=== PATIENT | female | born 1940 | race Hispanic/Latino ===

== ENCOUNTER → 2017-06-20 | Outpatient (CLI) | payer OTHER | LOC: RAH 09:50 | PROVIDERS: ATTEND Podiatrist | DX: M19.072 Primary osteoarthritis, left ankle and foot (principal) | CPT/HCPCS: 73630 ==

== ENCOUNTER → 2018-04-05 | Outpatient (CLI) | payer OTHER | END | disposition home or self-care (01) | LOC: SHCH 14:56 | PROVIDERS: ATTEND Internal Medicine Cardiovascular Disease | DX: R06.02 Shortness of breath (principal) | CPT/HCPCS: 93306 ==

== ENCOUNTER → 2018-09-04 | Outpatient (CLI) | payer OTHER ==
[~2018-09-04] VITALS: Ht 149.9 cm; Wt 68.9 kg
[~2018-09-04] MED LIST: REGADENOSON 0.4 MG/5 ML PF SYG IVP SCH
== END | disposition home or self-care (01) ==
LOC: SHCH 08:10
PROVIDERS: ATTEND Internal Medicine Cardiovascular Disease
DX: R07.1 Chest pain on breathing (principal); R06.00 Dyspnea, unspecified
CPT/HCPCS: 78452; 93017; 96374; A9500 ×2; J2785

== ENCOUNTER 2022-10-06 21:42 | Emergency (ER) | payer OTHER ==
[~2022-10-06] VITALS: Ht 149.9 cm; Wt 62.6 kg
[2022-10-06] MEDS ORDERED: LABETALOL 20MG VIAL IV ONE (22:30)
[2022-10-06 22:53] LABS: BASOPHILS % (AUTO) 0.6 % (0.0-5.0); HEMATOCRIT 26.2 % (36-48); LYMPHOCYTES % (AUTO) 23.3 % (21.0-51.0); MEAN CORPUSCULAR HGB CONC 33.6 g/dL (32.0-36.0); MEAN CORPUSCULAR VOLUME 92.3 fL (79-99); MONOCYTES % (AUTO) 7.2 % (3.0-13.0); NEUTROPHILS % (AUTO) 60.4 % (40.0-77.0); PLATELET COUNT (AUTO) 194 K/uL (130-400); RED BLOOD CELL COUNT(AUTO) 2.84 MIL/uL (4.00-5.50); WHITE BLOOD COUNT (AUTO) 8.9 K/uL (4.8-10.8)
[2022-10-06 23:13] LABS: CREATININE 3.9 mg/dL (0.5-1.5); POTASSIUM 3.7 mmol/L (3.5-5.1)
[2022-10-06 23:17] LABS: ALBUMIN 3.3 g/dL (3.5-5.0); TOTAL PROTEIN, SERUM 6.7 g/dL (6.0-8.3)
[2022-10-07] MEDS ORDERED: HYDRALAZINE 20MG/ML VIAL IV ONE (00:30)
[2022-10-07 01:27] VITALS: BP 133/72
== END 2022-10-07 01:32 | disposition home or self-care (01) ==
LOC: EDH 21:42
DX: I12.0 Hypertensive chronic kidney disease with stage 5 chronic kidney disease or end stage renal disease (principal); E03.9 Hypothyroidism, unspecified; E11.22 Type 2 diabetes mellitus with diabetic chronic kidney disease; N18.6 End stage renal disease; E78.00 Pure hypercholesterolemia, unspecified; Z88.6 Allergy status to analgesic agent; Z99.2 Dependence on renal dialysis
CPT/HCPCS: 99283; 96374; 80053; 85025; 36415; 96375; J3490; J0360

== ENCOUNTER 2022-10-13 05:41 | Emergency (ER) | payer OTHER ==
[~2022-10-13] VITALS: Ht 149.9 cm; Wt 68.0 kg
[2022-10-13 06:23] LABS: APPEARANCE,URINE CLOUDY (CLEAR); BILIRUBIN,URINE NEGATIVE (NEGATIVE); COLOR,URINE YELLOW (YELLOW); GLUCOSE, URINE (UA) 70 mg/dL (NEGATIVE); KETONES,URINE NEGATIVE (NEGATIVE); LEUKOCYTE ESTERASE ,URINE 75 Leu/uL (NEGATIVE); NITRATE,URINE NEGATIVE (NEGATIVE); OCCULT BLOOD,URINE NEGATIVE (NEGATIVE); PH,URINE 6.5 (5.0-8.0); PROTEIN,URINE 300 mg/dL (NEGATIVE); UROBILINOGEN,URINE 0.2 mg/dL (0.2-1.0)
[2022-10-13 07:21] VITALS: BP 127/58
[2022-10-13 07:30] LABS: BACTERIA,URINE RARE /HPF (None Seen); MUCUS,URINE RARE LPF (None Seen); SQUAMOUS EPITHELIAL CELL,UR MOD /HPF (0-2); TRANSITIONAL EPI CELLS,URINE RARE /HPF (None Seen)
== END 2022-10-13 07:22 | disposition home or self-care (01) ==
LOC: EDH 05:41
DX: E11.22 Type 2 diabetes mellitus with diabetic chronic kidney disease (principal); I12.9 Hypertensive chronic kidney disease with stage 1 through stage 4 chronic kidney disease, or unspecified chronic kidney disease; N18.4 Chronic kidney disease, stage 4 (severe); E78.00 Pure hypercholesterolemia, unspecified; Z99.2 Dependence on renal dialysis; Z88.6 Allergy status to analgesic agent
CPT/HCPCS: 51701; 81001

== ENCOUNTER 2022-10-15 17:45 | Emergency (ER) | payer OTHER, MEDICARE ==
[~2022-10-15] VITALS: Ht 147.3 cm; Wt 68.0 kg
[2022-10-15 18:44] LABS: BASOPHILS % (AUTO) 0.3 % (0.0-5.0); EOSINOPHILS % (AUTO) 1.9 % (0.0-8.0); HEMATOCRIT 24.5 % (36-48); LYMPHOCYTES % (AUTO) 17.7 % (21.0-51.0); MEAN CORPUSCULAR HEMOGLOBIN 30.9 pg (27.0-33.0); MEAN CORPUSCULAR HGB CONC 35.1 g/dL (32.0-36.0); MEAN CORPUSCULAR VOLUME 88.1 fL (79-99); MONOCYTES % (AUTO) 7.3 % (3.0-13.0); NEUTROPHILS % (AUTO) 72.4 % (40.0-77.0); PLATELET COUNT (AUTO) 219 K/uL (130-400); RED BLOOD CELL COUNT(AUTO) 2.78 MIL/uL (4.00-5.50); RED CELL DISTRIBUTION WIDTH 15.2 % (11.0-15.5); WHITE BLOOD COUNT (AUTO) 9.6 K/uL (4.8-10.8)
[2022-10-15 19:01] LABS: ALBUMIN 3.3 g/dL (3.5-5.0); CREATININE 3.6 mg/dL (0.5-1.5); POTASSIUM 3.5 mmol/L (3.5-5.1)
[2022-10-15 19:05] LABS: TOTAL PROTEIN, SERUM 6.4 g/dL (6.0-8.3)
[2022-10-15 19:27] LABS: B-TYPE NATRIURETIC PEPTIDE 648 pg/mL (0-100)
[2022-10-15 21:32] LABS: APPEARANCE,URINE CLEAR (CLEAR); BILIRUBIN,URINE NEGATIVE (NEGATIVE); COLOR,URINE LIGHT-YELLOW (YELLOW); GLUCOSE, URINE (UA) 50 mg/dL (NEGATIVE); KETONES,URINE NEGATIVE (NEGATIVE); LEUKOCYTE ESTERASE ,URINE NEGATIVE Leu/uL (NEGATIVE); NITRATE,URINE NEGATIVE (NEGATIVE); OCCULT BLOOD,URINE NEGATIVE (NEGATIVE); PH,URINE 6.5 (5.0-8.0); PROTEIN,URINE 300 mg/dL (NEGATIVE); UROBILINOGEN,URINE 0.2 mg/dL (0.2-1.0)
[2022-10-15 21:53] LABS: BACTERIA,URINE RARE /HPF (None Seen); WBC,URINE 0-1 /HPF (0-1)
[2022-10-15 23:52] VITALS: BP 156/57
[2022-10-22] MEDS ORDERED: SERT-439 PO (15:08)
[2022-10-22] MEDS ORDERED: HYDR25TA PO (15:08)
[2022-10-22] MEDS ORDERED: AMLO-258 PO (15:08)
[2022-10-22] MEDS ORDERED: FOLI0.8T2 PO (15:08)
[2022-10-22] MEDS ORDERED: ATOR40TA69 PO (15:08)
[2022-10-22] MEDS ORDERED: FERS325 PO (15:08)
[2022-10-22] MEDS ORDERED: FISH1CAP27 PO (15:08)
[2022-10-22] MEDS ORDERED: CHOL100020 PO (15:08)
[2022-10-22] MEDS ORDERED: SODI650T PO (15:08)
[2022-10-22] MEDS ORDERED: LINA5TAB PO (15:08)
[2022-10-22] MEDS ORDERED: TORS20TA4 PO (15:08)
[2022-10-22] MEDS ORDERED: HYDR100T27 PO (15:08)
[2022-10-22] MEDS ORDERED: METO100T14 PO (15:08)
[2022-10-22] MEDS ORDERED: DOXA8TAB81 PO (15:08)
[2022-10-22] MEDS ORDERED: ALLO100T PO (15:08)
== END 2022-10-15 23:58 | disposition home or self-care (01) ==
LOC: EDH 17:45
DX: I12.9 Hypertensive chronic kidney disease with stage 1 through stage 4 chronic kidney disease, or unspecified chronic kidney disease (principal); E11.22 Type 2 diabetes mellitus with diabetic chronic kidney disease; N18.4 Chronic kidney disease, stage 4 (severe); R33.9 Retention of urine, unspecified; Z99.2 Dependence on renal dialysis; E78.00 Pure hypercholesterolemia, unspecified; Z88.6 Allergy status to analgesic agent; Z90.49 Acquired absence of other specified parts of digestive tract
CPT/HCPCS: 36415; 51701; 71045; 74018; 80053; 81001; 83735; 83880; 84484; 85025; 93005

== ENCOUNTER → 2023-12-08 | Outpatient (CLI) | payer OTHER ==
[~2023-12-08] MED LIST changes: +ALLO100T PO; +AMLO-258 PO; +CHOL100020 PO; +DICY20TA2 PO; +DOXA8TAB81 PO; +FERR324T4 PO; +FISH1CAP27 PO; +FOLI0.8T2 PO; +HYDR100T15 PO; +LINA5TAB PO; +METO25 PO; -REGADENOSON 0.4 MG/5 ML PF SYG IVP SCH
== END | disposition home or self-care (01) ==
LOC: WHH 08:54
PROVIDERS: ATTEND Family Medicine
DX: S31.103D Unspecified open wound of abdominal wall, right lower quadrant without penetration into peritoneal cavity, subsequent encounter (principal); S31.502D Unspecified open wound of unspecified external genital organs, female, subsequent encounter; E11.628 Type 2 diabetes mellitus with other skin complications; E11.22 Type 2 diabetes mellitus with diabetic chronic kidney disease; I13.2 Hypertensive heart and chronic kidney disease with heart failure and with stage 5 chronic kidney disease, or end stage renal disease; N18.6 End stage renal disease; I50.9 Heart failure, unspecified; R21 Rash and other nonspecific skin eruption; B02.9 Zoster without complications; E78.5 Hyperlipidemia, unspecified; E03.9 Hypothyroidism, unspecified; Z99.2 Dependence on renal dialysis; X58.XXXD Exposure to other specified factors, subsequent encounter
CPT/HCPCS: G0463

== ENCOUNTER → 2023-12-15 | Outpatient (CLI) | payer OTHER | END | disposition home or self-care (01) | LOC: WHH 08:53 | PROVIDERS: ATTEND Family Medicine | DX: S31.103D Unspecified open wound of abdominal wall, right lower quadrant without penetration into peritoneal cavity, subsequent encounter (principal); S31.502D Unspecified open wound of unspecified external genital organs, female, subsequent encounter; E11.22 Type 2 diabetes mellitus with diabetic chronic kidney disease; I13.2 Hypertensive heart and chronic kidney disease with heart failure and with stage 5 chronic kidney disease, or end stage renal disease; N18.6 End stage renal disease; I50.9 Heart failure, unspecified; R21 Rash and other nonspecific skin eruption; B02.9 Zoster without complications; E78.5 Hyperlipidemia, unspecified; E03.9 Hypothyroidism, unspecified; Z99.2 Dependence on renal dialysis; Z79.899 Other long term (current) drug therapy; X58.XXXD Exposure to other specified factors, subsequent encounter | CPT/HCPCS: G0463 ==

== ENCOUNTER → 2023-12-29 | Outpatient (CLI) | payer OTHER | END | disposition home or self-care (01) | LOC: WHH 08:50 | PROVIDERS: ATTEND Family Medicine | DX: S31.103D Unspecified open wound of abdominal wall, right lower quadrant without penetration into peritoneal cavity, subsequent encounter (principal); S31.502D Unspecified open wound of unspecified external genital organs, female, subsequent encounter; E11.22 Type 2 diabetes mellitus with diabetic chronic kidney disease; I13.2 Hypertensive heart and chronic kidney disease with heart failure and with stage 5 chronic kidney disease, or end stage renal disease; N18.6 End stage renal disease; I50.9 Heart failure, unspecified; R21 Rash and other nonspecific skin eruption; B02.9 Zoster without complications; E78.5 Hyperlipidemia, unspecified; E03.9 Hypothyroidism, unspecified; Z99.2 Dependence on renal dialysis; Z79.899 Other long term (current) drug therapy; X58.XXXD Exposure to other specified factors, subsequent encounter | CPT/HCPCS: G0463 ==

== ENCOUNTER 2024-12-02 17:04 | Emergency (ER) | payer OTHER, MEDICARE ==
[~2024-12-02] VITALS: Ht 149.9 cm; Wt 56.7 kg
[~2024-12-02 17:04] MED LIST changes: -CHOL100020 PO; -DICY20TA2 PO; -DOXA8TAB81 PO; -FERR324T4 PO; -FISH1CAP27 PO; +FLUT16H EN; -FOLI0.8T2 PO; +FOLI1 PO; +FOLI1TAB85 PO; +GABA-529 PO; +LABE100T7 PO; +LEVO5TAB13 PO; -LINA5TAB PO; +LISI40TA15 PO; -METO25 PO; +ROPI0.2535 PO
--- NOTE | 2024-12-02 17:20 | ERN ---
ED Note History of Present Illness Stated Complaint: LOW HEMOGLOBIN Chief Complaint: Abnormal Labs Time Seen by MD: 17:07 Time Seen by Midlevel: 17:07 Dictation: The patient is seen 84-year-old female with a history of ESRD on dialysis, diabetes, hyperlipidemia, left hip repair November 11 who presents to the emergency department after being sent by hemodialysis for low hemoglobin. Patient reports she went to dialysis yesterday but they just told them today that her hemoglobin was low. Patient other rajan denies any symptoms. Denies any bloody stools. Allergies: Coded Allergies: tramadol (Unverified Allergy, Mild, ITCHING, 01/21/24) MILD ITCHING ON HANDS W TRAMADOL. aspirin (Unverified Allergy, Unknown, 09/01/18) naproxen (Unverified Allergy, Unknown, 09/01/18) Uncoded Allergies: GOAT (Allergy, Intermediate, HIVES, 01/16/16) Home Meds Reported Medications Levocetirizine Dihydrochloride (Levocetirizine Dihydrochloride) 5 Mg Tablet, 1 TAB PO HS for 30 Days, #30 TAB 0 Refills 11/10/24 Folic Acid (Folvite) 1 Mg Tab, 1 TAB PO DAILY for 30 Days, #30 TAB 0 Refills 11/10/24 Ropinirole HCl (Ropinirole HCl) 0.25 Mg Tablet, 1 TAB PO DAILY 11/09/24 Gabapentin (Gabapentin) 100 Mg Capsule, 1-2 CAP PO HS 11/09/24 Fluticasone Propionate (Flonase Nasal [place]) 50 Mcg/Actuation [place], 1 SPRY EN BID 11/09/24 Hydralazine HCl (Hydralazine HCl) 100 Mg Tablet, 1 TAB PO TID 11/09/24 Vit B Cmplx 3/FA/Vit C/Biotin (Linda-Kapil Rx Tablet) 1 Mg-60 Mg-300 Mcg Tablet, 1 TAB PO DAILY 11/09/24 Amlodipine Besylate (Amlodipine Besylate) 10 Mg Tablet, 1 TAB PO DAILY for blood pressure 11/09/24 Allopurinol (Allopurinol) 100 Mg Tablet, 1 TAB PO DAILY 11/09/24 Labetalol HCl (Labetalol HCl) 100 Mg Tablet, 1 TAB PO BID 11/09/24 Lisinopril (Lisinopril) 40 Mg Tablet, 1 TAB PO DAILY 11/09/24 Past Medical History Past Medical History: Arthritis, Diabetes-Type II, Hypertension, Renal Disese, Renal Failure Additional Past Medical Hx: GOUT, KIDNEY PROBLEMS Surgical History: Other Surgical History Other: LEFT HIP SX 11/11/24 Family History: Negative Social History: Negative, Lives with family History: Not Applicable RN Note Reviewed/Agreed w/PFSH: Yes Review of System Dictation Constitutional: Negative for fever,chills, and weight loss Eyes: Negative for injury, pain,redness, and discharge ENT: Negative for injury,pain or swelling Cardiovascular: Negative for chest pain, palpitations, and edema Respiratory: Negative for shortness of breath, cough, and wheezing, Abdomen/GI: Negative for abdominal pain, nausea, vomiting, diarrhea, and constipation Back: Negative for injury and pain : Negative for injury, bleeding and discharge MS/Extremity: Negative for injury and deformity Skin: Negative for rash, and discoloration Neuro: Negative for headache, weakness, numbness, tingling, and seizure Psych: Negative for suicide ideation, homicidal ideation, and hallucinations Initial Vital Sign VS Vital Signs Date Time Temp Pulse Resp B/P (MAP) Pulse Ox O2 Delivery O2 Flow Rate FiO2 12/02/24 17:07 98.2 85 16 195/57 95 Room Air 0 Physical Exam Dictation Vital Signs reviewed General Appearance: Alert, oriented x 3, no acute distress, well developed, nourished. Head and Face: non-traumatic. Eyes: PERRL, pink conjunctivas, eyelid no trauma, anterior chamber with arcus senilis. Ears: Pinnas intact and no signs of trauma or erythema ear canals clear and no discharge TM no erythema Nose: No discharge, no bleeding. Oropharynx: Mouth normal, tongue pink. pharynx clear,no erythema, tonsils no exudates, no abscesses noted, mucous membrane moist Neck: Supple, non-tender, no thyromegaly, no masses, no JVD, no bruits Breast:Deferred Chest:No tenderness, no crepitus, no paradoxical movement, no retractions Lungs:Clear, well-ventilated, symmetric, no rales, no wheezing, no rhonchi, no stridor, good breath sounds bilaterally Heart: Regular rate, regular rhythm, no murmur, no gallops Vascular: no peripheral edema, Abdomen: Soft, positive bowel sounds, nondistended, no guarding, nontender, no rebound, no masses no hepatomegaly, no splenomegaly, no Olivas's sign, no hernias. Rectal: Deferred Genital: Deferred Neurological: Normal speech, motor function intact, sensory function intact Musculoskeletal: Neck nontender, full range of motion, back nontender, full range of motion, Extremities: nontender, full range of motion Skin: Color pink, dry, no turgor, no rash, no lacerations, no abrasions, no contusions. Lymphatic: Deferred Results (Laboratory/Radiology) Laboratory/Radiology Laboratory Tests Test 12/02/24 17:25 White Blood Count 8.0 K/uL (4.8-10.8) Red Blood Count 2.42 MIL/uL (4.00-5.50) L Hemoglobin 7.7 g/dL (12.0-16.0) L Hematocrit 25.7 % (36-48) L Mean Corpuscular Volume 106.2 fL (79-99) H Mean Corpuscular Hemoglobin 31.8 pg (27.0-33.0) Mean Corpuscular Hemoglobin Concent 30.0 g/dL (32.0-36.0) L Red Cell Distribution Width 16.6 % (11.0-15.5) H Platelet Count 339 K/uL (130-400) Mean Platelet Volume 10.1 fL (7.5-10.5) Immature Granulocyte % (Auto) 0.6 % (0-1) Neutrophils (%) (Auto) 64.8 % (40.0-77.0) Lymphocytes (%) (Auto) 19.9 % (21.0-51.0) L Monocytes (%) (Auto) 9.4 % (3.0-13.0) Eosinophils (%) (Auto) 4.0 % (0.0-8.0) Basophils (%) (Auto) 1.3 % (0.0-5.0) Neutrophils # (Auto) 5.2 K/uL (1.8-7.7) Lymphocytes # (Auto) 1.6 K/uL (1.0-4.8) Monocytes # (Auto) 0.8 K/uL (0.1-1.0) Eosinophils # (Auto) 0.32 K/uL (0.00-0.70) Basophils # (Auto) 0.10 K/uL (0.00-0.20) Absolute Immature Granulocyte (auto 0.05 K/uL (0-1) Nucleated Red Blood Cells 0.0 % (0.0-0.19) Sodium Level 138 mmol/L (136-145) Potassium Level 3.5 mmol/L (3.5-5.1) Chloride Level 100 mmol/L (101-111) L Carbon Dioxide Level 31 mmol/L (21-32) Blood Urea Nitrogen 18 mg/dL (7-18) Creatinine 3.8 mg/dL (0.5-1.0) H Glomerular Filtration Rate Calc 11 mL/min (>90) Random Glucose 118 mg/dL (70-105) H Total Calcium 9.9 mg/dL (8.5-10.1) Labs Reviewed?: Yes ED Course ED Course Orders Procedure Category Date Status Time Cbc With Differential LAB 12/02/24 In Process 17:15 Basic Metabolic Panel LAB 12/02/24 Complete 17:15 Type And Screen BBK 12/02/24 In Process 17:15 Vital Signs Date Time Temp Pulse Resp B/P (MAP) Pulse Ox O2 Delivery O2 Flow Rate FiO2 12/02/24 17:07 98.2 85 16 195/57 95 Room Air 0 Medical Decision Making MDM The patient is seen 84-year-old female with a history of ESRD on dialysis, diabetes, hyperlipidemia, left hip repair November 11 who presents to the emergency department after being sent by hemodialysis for low hemoglobin. Patient reports she went to dialysis yesterday but they just told them today that her hemoglobin was low. Patient other raajn denies any symptoms. Denies any bloody stools. CBC showed no leukocytosis, microcytic anemia, increased from previous admission, chemistry showed mild hypochloremia, creatinine of 3.8. On physical exam patient is in no acute distress, nontoxic appearance. Patient non symptomatic. We will be discharged back to rehab facility in instructed to continue her dialysis treatment. Differential diagnosis: Anemia, electrolyte imbalance, GI bleed Need for hospitalization: Patient does not meet criteria for hospitalization. There are no social concerns with this patient. DX & DISP Disposition: Discharge Departure Impression: Primary Impression: Anemia Additional Impression: Chronic kidney disease, stage 4 (severe) Condition: Stable Additional Instructions: Please follow up with your PCP in 1-2 days. Your labs here were stable. FOLLOW-UP WITH PRIMARY CARE PROVIDER IN 1 TO 2 DAYS. TAKE MEDICATIONS DIRECTED HERE IN THE EMERGENCY ROOM. OKAY TO CONTINUE HOME MEDICATIONS UNLESS OTHERWISE DISCUSSED DURING YOUR VISIT IN THE EMERGENCY ROOM TODAY. RETURN TO YOUR NEAREST EMERGENCY ROOM IF SYMPTOMS WORSEN OR IF THERE IS NO IMPROVEMENT. CALL 911 IF YOU NEED IMMEDIATE ASSISTANCE. TAKE TYLENOL [id number] NEEDED AND IF NO CONTRAINDICATIONS ARE PRESENT. INCREASE ORAL HYDRATION. A WOUND CULTURE OR URINE CULTURE WAS ORDERED HERE IN THE EMERGENCY ROOM DEPARTMENT PLEASE FOLLOW-UP WITH PRIMARY CARE PROVIDER AND ADVISE THEM TO GET REPEAT PORTS FROM OUR FACILITY. IF YOU HAD ANY SIMONA WRAP/SPLINTS THAT WERE APPLIED HERE, PLEASE DO NOT REMOVE THEM UNTIL YOU SEE YOUR PRIMARY CARE OR SPECIALTY. Referrals: SHIMON ESPINAL MD (PCP) Time of Disposition: 17:54 I have reviewed the case, and I agree with, Diagnosis and Plan TEE HERNANDEZ [facility] Dec 02, 2024 17:20
[2024-12-02 17:36] LABS: IMMATURE GRANULOCYTE ABSOLUTE 0.05 K/uL (0-1); NUCLEATED RED BLOOD CELLS 0.0 % (0.0-0.19); PLATELET COUNT (AUTO) 339 K/uL (130-400); RED BLOOD CELL COUNT(AUTO) 2.42 MIL/uL (4.00-5.50); RED CELL DISTRIBUTION WIDTH 16.6 % (11.0-15.5); WHITE BLOOD COUNT (AUTO) 8.0 K/uL (4.8-10.8)
[2024-12-02 17:43] LABS: CREATININE 3.8 mg/dL (0.5-1.0); GLOMERULAR FILTR. RATE CALC 11.0 mL/min (>90); GLUCOSE,RANDOM 118.0 mg/dL (70-105); SODIUM SERUM 138.0 mmol/L (136-145); UREA NITROGEN, BLOOD 18.0 mg/dL (7-18)
--- NOTE | 2024-12-02 18:16 | NUR ---
[facility] NOTIFIED OF TRANSPORT TO [place]. ALL APPROPRIATE DOCUMENTS FAXED. VERIFIED WITH TAX OF FAX RECEIPT.
--- NOTE | 2024-12-02 18:28 | NUR ---
[facility] CALLED AT 1815 PENDING ARRIVAL OF [employer].
--- NOTE | 2024-12-02 21:30 | NUR ---
EMS ARRIVED TO [facility] [place]
--- NOTE | 2024-12-02 21:36 | NUR ---
REPORT GIVEN TO GIANFRANCO NESS AT [facility] ABOUT DISCHARGE.
[2024-12-02 21:40] VITALS: BP 168/60; PULSE 90; RESP 18; TEMP 98.7; O2SAT 98
--- NOTE | 2024-12-02 21:40 | NUR ---
SUMMARY REPORT AND DISCAHRGE PAPER WORK GIVEN TO EMS WITH PT
--- NOTE | 2024-12-02 21:42 | NUR ---
EMS LEFT WITH PT PENDING ARRIVAL TO [facility] IN [place]. PT SHOWS NO SIGNS OF DISTRESS.
== END 2024-12-02 21:43 | disposition home or self-care (01) ==
LOC: EDH 17:04
DX: D64.9 Anemia, unspecified (principal); I12.9 Hypertensive chronic kidney disease with stage 1 through stage 4 chronic kidney disease, or unspecified chronic kidney disease; E11.22 Type 2 diabetes mellitus with diabetic chronic kidney disease; N18.4 Chronic kidney disease, stage 4 (severe); M19.90 Unspecified osteoarthritis, unspecified site; Z79.899 Other long term (current) drug therapy; Z88.5 Allergy status to narcotic agent; Z88.6 Allergy status to analgesic agent
CPT/HCPCS: 36415; 80048; 85025; 86850; 86900; 86901; 99285